=== PATIENT | female | born 1965 | race Caucasian/White ===

== ENCOUNTER 2019-10-15 19:50 | Emergency (ER) | payer OTHER ==
[~2019-10-15] VITALS: Ht 160 cm; Wt 81.6 kg
[~2019-10-15 19:50] MED LIST: ACTICAL SOFTGEL1 CAP PO; CARDIZEM CD120 MG PO; CATAFLAM50 MG PO; COZAAR100 MG PO; HYDROCHLOROTH12.5 M1 PO; LAMICTAL100 MG PO; Neurontin PO; OLEPTRO ER150 MG PO; ORPH100T PO; OXYC1TAB9 PO; SYNTHROID112 MCG PO; XARELTO10 MG PO; [UNRECOGNIZED DRUG - CODE] PO; [UNRECOGNIZED DRUG - OTHER] PO; [UNRECOGNIZED DRUG - OTHER] PO
[2019-10-15] MEDS ORDERED: SYNTHROID100 MCG (20:01)
[2019-10-15] MEDS ORDERED: WELLBUTRIN SR200 MG (20:03)
[2019-10-15] MEDS ORDERED: PROPRANOLOL HCL40 MG PO (23:43)
== END 2019-10-15 23:54 | disposition home or self-care (01) ==
LOC: ER 19:50
DX: G25.1 Drug-induced tremor (principal); R07.89 Other chest pain; R53.1 Weakness; T38.1X5A Adverse effect of thyroid hormones and substitutes, initial encounter; Y92.89 Other specified places as the place of occurrence of the external cause

== ENCOUNTER 2024-06-07 05:43 | Emergency (ER) | payer OTHER ==
[~2024-06-07] VITALS: Ht 157.5 cm; Wt 82.1 kg
[~2024-06-07 05:43] MED LIST changes: +PROPRANOLOL HCL40 MG PO; +SYNTHROID100 MCG; +WELLBUTRIN SR200 MG
[2024-06-07] MEDS ORDERED: TRAZODONE HCL50 MG PO (06:17)
[2024-06-07] MEDS ORDERED: DIPHENHYDRAMINE HCL 50 MG/ML VIAL 1ML IV ONE ×2 (07:00→12:15)
[2024-06-07] MEDS ORDERED: DIPHENHYDRAMINE HCL 50 MG/ML VIAL 1ML ONE ×3 (07:16→19:32)
[2024-06-07 07:56] LABS: HEMATOCRIT 33.5 % (36.0-45.00); HEMOGLOBIN 11.4 g/dL (12.0-15.00); MEAN CORPUSCULAR HEMOGLOBIN 29.6 pg (27.00-32.0); PLATELET COUNT 171 K/uL (150-450); RED BLOOD COUNT 3.85 M/uL (4.00-6.00); RED CELL DISTRIBUTION WIDTH 14.6 % (11.5-14.5)
[2024-06-07 08:08] LABS: ALBUMIN 2.9 gm/dL (3.4-5.0); BILIRUBIN TOTAL 0.33 mg/dL (0.3-1.2); CALCIUM 8.9 mg/dL (8.5-10.1); CREATININE SERUM 0.96 mg/dL (0.55-1.02); GFR 59.28; GLOBULINA 3.6 G/DL (2.4-3.5); POTASSIUM 4.35 mEq/L (3.5-5.1); TOTAL PROTEIN 6.5 gm/dL (6.4-8.2)
[2024-06-07] MEDS ORDERED: 0.9 % SODIUM CHLORIDE 1,000 ML IV ONE (12:15)
[2024-06-07] MEDS ORDERED: HALOPERIDOL 0.5 MG TABLET PO ONE (12:15)
[2024-06-07] MEDS ORDERED: HALOPERIDOL LACTATE 5 MG/ML AMPUL IM ONE ×2 (12:30→19:30)
[2024-06-07 12:51] LABS: COCAINE NEGATIVE (NEGATIVE); METHADONE NEGATIVE (NEGATIVE); OPIATES NEGATIVE (NEGATIVE); THC ( Cannabinoids) NEGATIVE (NEGATIVE)
[2024-06-07] MEDS ORDERED: HALOPERIDOL LACTATE 5 MG/ML AMPUL ONE ×2 (13:23→19:33)
[2024-06-07] MEDS ORDERED: DIPHENHYDRAMINE HCL 50 MG/ML VIAL 1ML IM ONE (19:30)
[2024-06-07] MEDS ORDERED: LOSARTAN POTASSIUM 100 MG TABLET PO ONE (19:30)
[2024-06-08] MEDS ORDERED: LORazepam 2 MG/ML VIAL IV ONE (11:30)
[2024-06-08] MEDS ORDERED: LORazepam 2 MG/ML DISP.SYRIN ONE (11:35)
[2024-06-08] MEDS ORDERED: HALOPERIDOL LACTATE 5 MG/ML AMPUL ONE (12:14)
[2024-06-08] MEDS ORDERED: DIPHENHYDRAMINE HCL 50 MG/ML VIAL 1ML ONE (12:14)
[2024-06-08] MEDS ORDERED: DIPHENHYDRAMINE HCL 50 MG/ML VIAL 1ML IV ONE (12:15)
[2024-06-08] MEDS ORDERED: HALOPERIDOL LACTATE 5 MG/ML AMPUL IV ONE (12:15)
[2024-06-08 12:17] LABS: PH,URINE 6.5 (5.0-8.0); URINE APPEARANCE Clear; URINE BILIRRUBIN Negative (NEGATIVE); URINE BLOOD Negative; URINE COLOR Yellow; URINE GLUCOSE Negative (NEGATIVE); URINE KETONE Negative (NEGATIVE); URINE LEUKOCYTE Negative; URINE NITRATE Negative; URINE PROTEIN Negative (NEGATIVE); URINE UROBILINOGEN 0.2 E.U./dl
[2024-06-08 12:20] LABS: URINE BACTERIA 130.8 uL (0.0-1933); URINE EPITHELIAL CELLS 9.3 uL (0.0-38.8); URINE RBC 5.5 uL (0.0-20.8)
[2024-06-08 12:44] LABS: URINE CAST 0.14 uL (0.0-1.40)
== END 2024-06-08 18:19 | disposition designated cancer center or children's hospital (05) ==
LOC: ER 05:46
PROVIDERS: Emergency Medicine; General Practice
DX: F30.10 Manic episode without psychotic symptoms, unspecified (principal); R25.9 Unspecified abnormal involuntary movements; F41.9 Anxiety disorder, unspecified; Z20.822 Contact with and (suspected) exposure to COVID-19; Z88.8 Allergy status to other drugs, medicaments and biological substances